=== PATIENT | female | born 1945 | race Caucasian/White ===

== ENCOUNTER 2022-07-01 01:52 | Outpatient (CLI) | payer MEDICARE, SELFPAY ==
[2022-07-01 12:27] LABS: HGB 13.3 g/dL (11.2-15.7); MCH 28.7 pg (27.0-33.0); MCHC 31.7 % (32.0-36.0); MCV 91 fL (80-95); MPV 10.8 fL (8.0-11.0); Platelet Count 296 10^3/uL (130-400); RBC 4.63 10^6/uL (3.93-5.22); RDW 13.9 % (11.7-14.6); RDW-SD 46.5 fL; WBC 6.78 10^3/uL (4.4-10.8)
[2022-07-01 12:58] LABS: ALT 16 U/L (14-59); AST 17 U/L (15-37); Alkaline Phosphatase 95 U/L (46-116); Anion Gap 7.1 mmol/L (3-11); BUN 17 mg/dL (7-18); Bilirubin, Total 0.3 mg/dL (0.2-1.0); CO2 26.9 mmol/L (21.0-32.0); CREATININE 0.8 mg/dL (0.55-1.02); Calcium 9.7 mg/dL (8.5-10.1); Chloride 107 mmol/L (98-107); Estimated GFR 76.31 (mL/min/1.73m2); Glucose 109 mg/dL (74-106); Potassium 3.9 mmol/L (3.5-5.1); Sodium 141 mmol/L (136-145); Total Protein 7.9 g/dL (6.4-8.2)
== END 2022-07-01 01:53 | disposition home or self-care (01) ==
LOC: LBO 01:52
PROVIDERS: Visit Provider Obstetrics & Gynecology Gynecology
DX: Z01.818 Encounter for other preprocedural examination (principal)
CPT/HCPCS: 36415; 80053; 85027; 86850; 86900; 86901

== ENCOUNTER 2022-07-03 06:12 | Day surgery (SDC) | payer MEDICARE, SELFPAY ==
[2022-07-03] VITALS (11 sets, daily range): BP systolic 91–158; BP diastolic 58–85; PULSE 61–81; RESP 12–22; TEMP 36.1–36.7; O2SAT 96–100; BMI 28.5
--- NOTE | 2022-07-03 07:54 | W.ANESPRE ---
General Info Date of Service Date Performed: 07/03/22 Height: 5 ft 4 in Weight: 75.6 kg Body Mass Index (BMI): 28.5 Surgical Procedure: Operation Date: 07/03/22 07:40 Proposed Procedure Side Surgeon p Salping-Oophorectomy Laparoscopic Bilateral Denae Thao MD Meds Allergies and Home Medications Allergies Allergy/AdvReac Type Severity Reaction Status Date / Time latex Allergy Mild Verified 07/03/22 06:56 fentanyl Allergy Verified 07/03/22 06:56 Home Medication Medication Instructions Recorded ascorbate calcium (vitamin C) 500 500 mg PO DAILY 05/23/22 mg tablet brimonidine 0.2 % eye drops 1 drp ophthalmic (eye) BID 05/23/22 calcium carbonate 500 mg-vitamin 2 tab PO DAILY 05/23/22 D3 3.125 mcg (125 unit) tablet cetirizine 10 mg tablet (Allergy 10 mg PO DAILY PRN 05/23/22 Relief (cetirizine)) cholecalciferol (vitamin D3) 50 50 mcg PO DAILY 05/23/22 mcg (2,000 unit) capsule cyanocobalamin (vitamin B-12) 1,000 mcg PO DAILY 05/23/22 1,000 mcg capsule epinephrine 0.3 mg/0.3 mL 0.3 mg IM ONCE 05/23/22 injection, auto-injector magnesium oxide 400 mg PO DAILY 05/23/22 melatonin 10 mg capsule 10 mg PO HS 05/23/22 netarsudil 0.02 %-latanoprost 1 drp ophthalmic (eye) DAILY 05/23/22 0.005 % eye drops omega-3 fatty acids-fish oil 360 1 cap PO DAILY 05/23/22 mg-1,200 mg capsule (Fish Oil) ropinirole 1 mg tablet 1 mg PO QHS 05/23/22 acetaminophen 500 mg tablet 500 mg PO DAILY 07/02/22 (Acetaminophen Extra Strength) diphenhydramine HCl 25 mg tablet 25 mg PO HS PRN 07/02/22 Current Visit Medications: Current Medications Generic Name Dose Route Start Last Admin Trade Name Freq PRN Reason Stop Dose Admin Ringer's Solution 1,000 mls @ 125 mls/hr 07/03/22 06:00 IV 07/14/22 23:59 INFUSION TONIA IV Miscellaneous Supplies 1 each 07/03/22 06:00 Iv Access IV 07/14/22 23:59 DIRECTED TONIA Sodium Chloride 0 ml 07/03/22 06:00 Normal Saline Flush 10 Ml Syr IV 07/14/22 23:59 PRN PRN Sodium Chloride 0 ml 07/03/22 06:00 Normal Saline 10 Ml Vial IJ 07/14/22 23:59 DIRECTED PRN Sterile Water 0 ml 07/03/22 06:00 Water,Injection,Sterile 10 Ml Vial IJ 07/14/22 23:59 DIRECTED PRN PFS Active Problems Active Problems: Problem Status Onset Code Cyst of ovary, left N83.202 Mastocytosis D47.09 Medical History Medical History Breast cancer, right breast 2012. Lumpectomy and XRT. Nl mammos since. Glaucoma L eye. followed by [place] Skin cancer 2021. SCC. Medical History Comments:: 09/04/2020: [facility] [place] note, Dr. Airam Herrera, Dermatology noted indolent systemic mastocytosis Surgical History Surgical History Fracture of left femur 02/2022. [facility] Fracture of right femur 2017. Surgical repair. Hx of tonsillectomy Tobacco Smoking/Tobacco Use Status: Former Tobacco Use Alcohol Alcohol Intake: never Substance Use Substance use: Never Vital Signs and Lab Results Vital Signs Most Recent Vital Signs in EMR: Most Recent Vital Signs Temp Pulse Resp BP Pulse Ox 36.1 C L 81 16 131/82 97 07/03/22 06:37 07/03/22 06:37 07/03/22 06:37 07/03/22 06:37 07/03/22 06:37 Lab Results Blood Type / Crossmatch: Patient ABO/Rh AB Positive 07/01/22 Antibody Screen NEGATIVE 07/01/22 Complete Blood Count: White Blood Count 6.78 10^3/uL (4.4-10.8) 07/01/22 12: Red Blood Count 4.63 10^6/uL (3.93-5.22) 07/01/22 12:23 Hemoglobin 13.3 g/dL (11.2-15.7) 07/01/22 12:23 Hematocrit 42.0 % (36.0-46.0) 07/01/22 12:23 Platelet Count 296 10^3/uL (130-400) 07/01/22 12:23 Complete Metabolic Panel: Sodium 141 mmol/L (136-145) 07/01/22 12:23 Potassium 3.9 mmol/L (3.5-5.1) 07/01/22 12:23 Chloride 107 mmol/L (98-107) 07/01/22 12:23 Carbon Dioxide 26.9 mmol/L (21.0-32.0) 07/01/22 12:23 BUN 17 mg/dL (7-18) 07/01/22 12:23 Creatinine 0.8 mg/dL (0.55-1.02) 07/01/22 12:23 Est GFR (CKD-EPI 2020) 76.31 (mL/min/1.73m2) 07/01/22 12:23 Calcium 9.7 mg/dL (8.5-10.1) 07/01/22 12:23 Albumin 4.0 g/dL (3.4-5.0) 07/01/22 12:23 Glucose 109 mg/dL (74-106) H 07/01/22 12:23 Liver Function Panel: Alanine Aminotransferase (ALT/SGPT) 16 U/L (14-59) 07/01/22 12:23 Aspartate Amino Transf (AST/SGOT) 17 U/L (15-37) 07/01/22 12:23 Coagulation Panel: No Data to Display Cardiac Panel: No Data to Display Arterial Blood Gas: No Data to Display Venous Blood Gas: No Data to Display Pancreas Panel: No Data to Display Thyroid Panel: No Data to Display Infectious Disease: No Data to Display Blood Cultures: No Data to Display Toxicology Panel: No Data to Display Imaging and Studies Imaging and Studies Study information below may be from another EMR and interpreted by another provider. Please see original notes in EMR for more complete details. EKG Summary: 05/27/2022: NSR Anesthesia Assessment and Plan Anesthesia History Personal History: Other Family History: No Family History of Anesthesia Complications Exercise Tolerance Exercise Tolerance: Metabolic Equivalents>4 Pertinent Negatives Pertinent Negatives: No Symptoms of GERD, No Major Cardiovascular Symptoms or Complaints and No Major Pulmonary Symptoms or Complaints Cardiac & Pulmonary Exam Cardiac Exam: Normal S1/S2 Heart Sounds Pulmonary Exam: Clear Bilateral Breath Sounds Implantable Cardiac Device Does patient have a Pacemaker or an ICD?: No Airway Exam Known Difficult Airway: No Mallampati Class: 2 Mouth Opening: Normal (> 3cm) Thyromental Distance: Greater than 3 cm Neck Range of Motion: Full ROM Neck Circumference: Normal Teeth Condition: Normal Dentition ASA Classification ASA Score: ASA 3 Emergency Case?: No NPO Status NPO Status: NPO Clears >2 hours, Solids >8 hours Anesthesia Plan Resuscitation Status: Full Code Anesthesia Technique: General Anesthesia Airway Planned: Endotracheal Tube Monitors Used: Standard Monitors and SedLine Preoperative Comments:: Lengthy discussion of mastocytosis, [facility] records reviewed. Plan for premedication, intraoperative to minimize risk factors to include heat as major trigger, and all team members have been updated on plan. Additional anesthesia provider available.
[2022-07-03] MEDS: Normal Saline Flush 10 ML SYR IV (08:09)
[2022-07-03] MEDS: Lactated Ringers 1,000 ML 125 ML IV (08:11)
[2022-07-03] MEDS: Bupivacaine 0.25% Pres-Free 30 ML VIAL (09:12)
--- NOTE | 2022-07-03 09:30 | OVAR_PTH ---
PATIENT: Isabel Willett LOC: [facility] U#:[id number] AGE/SX: 77/F ROOM: RE07/03/[address]: Denae Thao : 1945 BED: DIS: 07/03/2022 SPEC #: [id number] RECD: 07/03/22 12:40 STATUS: JAZMYNE REQ #: [id number] NATASHA: 07/03/22 09:[address]: Denae Thao DEPT: Surgical Specimen RECD BY: Yara Beck ENTERED: 07/03/22 12:45 SP TYPE: CRISTIANO FALCON DR: Unknown,Unknown Tissues: 1 - OVARY NOT TUMOR W OR W/O TUBES 2 - OVARY NOT TUMOR W OR W/O TUBES Procedures: GROSS AND MICRO LEVEL 4 Comments: [id number]
--- NOTE | 2022-07-03 09:30 | PAPNONF_PTH ---
PATIENT: Isabel Willett LOC: [facility] U#:[id number] AGE/SX: 77/F ROOM: RE07/03/[address]: Denae Thao : 1945 BED: DIS: 07/03/2022 SPEC #: [id number] RECD: 07/03/22 13:19 STATUS: JAZMYNE REQ #: [id number] NATASHA: 07/03/22 09:[address]: Denae Thao DEPT: [facility] Cytology RECD BY: Yara Beck ENTERED: 07/03/22 13:19 SP TYPE: SPARKLE FALCON DR: Unknown,Unknown Tissues: 1 - BODY FLUID CYTO(NOT S/U/N/EM)[facility] Procedures: BODY FLUID CYTO(NOT SPU/UR/NIP/ENDOM)[facility] Comments: [id number] (TV = 100 ml, SENT FRESH) (REFRIGERATED)
--- NOTE | 2022-07-03 10:03 | PDOC.DSDIS_ITS ---
Date of service: 07/03/22 Time of Service: 10:03 Discharge Plan Disposition Patient Disposition: Home Condition: Fair Discharge Details Reason For Visit: Laparoscopic bilateral salpingo-oophorectomy Attending Provider: Denae Thao Primary Care Provider: Unknown,Unknown Home Meds and New Rx's Prescriptions: No Action calcium carbonate-vitamin D3 500 mg-3.125 mcg (125 unit) tablet 2 tab PO DAILY Rx Instructions: 750 with Vitamin D3 500 magnesium oxide 400 mg magnesium capsule 400 mg PO DAILY Rx Instructions: omit Friday and Friday ascorbate calcium (vitamin C) 500 mg tablet 500 mg PO DAILY cholecalciferol (vitamin D3) 50 mcg (2,000 unit) capsule 50 mcg PO DAILY cyanocobalamin (vitamin B-12) 1,000 mcg capsule 1,000 mcg PO DAILY omega-3 fatty acids-fish oil [Fish Oil] 360-1,200 mg capsule 1 cap PO DAILY netarsudil-latanoprost 0.02-0.005 % drops 1 drp ophthalmic (eye) DAILY Rx Instructions: left eye brimonidine 0.2 % drops 1 drp ophthalmic (eye) BID Rx Instructions: administer approximately 8 hours apart ropinirole 1 mg tablet 1 mg PO QHS Rx Instructions: administer 1-3 hours before bedtime melatonin 10 mg capsule 10 mg PO HS epinephrine 0.3 mg/0.3 mL auto-injector 0.3 mg IM ONCE Rx Instructions: as a single dose; may repeat once cetirizine [Allergy Relief (cetirizine)] 10 mg tablet 10 mg PO DAILY PRN acetaminophen [Acetaminophen Extra Strength] 500 mg Tablet 500 mg PO DAILY diphenhydramine HCl 25 mg Tablet 25 mg PO HS PRN Discharge Instructions Additional Instructions: Avoid Ibuprofen for pain, I will write a prescription for Dilaudid if your pain is not controlled with Tylenol. Call Dr. Thao at [phone] with any concerns or questions. Keep your postop appointment with Dr. Thao. Stand Alone Forms: Anesthesia Discharge Inst., D[facility] Post Orthotic Technician SurgeryW/Kari Beebe ([facility]U) Referrals: Denae Thao MD [ [facility] STAFF PHYSICIAN] - 07/18/22 1:00 pm Activity:: Activity as Tolerated Shower/Bathe:: 24 hours Diet:: As Tolerated Discharge Orders Discharge Orders: Discharge Order (Routine); Ordered 07/03/22 Ordered By: Denae Thao
[2022-07-03] MEDS: HYDROmorphone 2 MG/ML SYR IVP (11:10)
--- NOTE | 2022-07-03 12:26 | ROE_ITS ---
Date of service: 07/03/22 Time of Service: 12:27 Operative Note Operative Note DATE OF PROCEDURE: 07/03/22 PRE-OP DIAGNOSIS: Left ovarian cyst POST-OP DIAGNOSIS: same PROCEDURE: Laparoscopic bilateral salpingo-oophorectomy including the left ovarian cyst SURGEON: Denae Thao ASSISTING SURGEON: Renate Gray ANESTHESIA TYPE: General LMA/ETT Refer to Anesthesia Record ESTIMATED BLOOD LOSS: 0 PATHOLOGY: other (Left ovarian cyst with left ovary and left fallopian tube along with right fallopian tube and right ovary) COMPLICATIONS: None Patient was transported to: PACU Patient's condition: stable Implants: None Indications: 77-year-old G0 female with a enlarged left ovarian cyst noted as an incidental finding at the time of a CAT scan in February 2022. Patient was experiencing some symptoms of urinary frequency and bladder pressure and decision was made to remove the cyst laparoscopically Findings: Smooth-walled left-sided ovarian cyst occupying the posterior cul-de-sac but no visible ovarian tissue noted. The left fallopian tube in mesosalpinx was draped over the left ovarian cyst. It was mobile with smooth walled with 240cc clear fluid aspirated at the time of surgery. Normal right adnexa. Uterus small with small anterior pedunculated fibroid and L broad ligament fibroid. Procedure Description: Patient was taken to the operating room where she was placed in the dorsal lithotomy position in a neurologically neutral position prior to the administration of general endotracheal anesthesia. SCDs were in place. She was prepped and draped in the usual sterile fashion. A surgical timeout was performed.? A ring forcep with a moistened 4 x 4 was placed into the vagina and left during the case. The umbilical fold was infiltrated with quarter percent Marcaine in a 12 mm transverse skin incision was made in the umbilicus.? Through this incision a Verres needle was placed into the abdomen and intra-abdominal placement confirmed by drop in the intra-abdominal pressure.?Once a pneumoperitoneum was established a 12 mm Visiport trocar was introduced into the abdomen under direct visualization.? The patient was then placed in Trendelenburg and approximately 6 cm diagonal to the right and left of the umbilical incision the skin was transilluminated the subcutaneous tissue infiltrated with quarter percent Marcaine and then incised with a scalpel.? Und er direct visualization two 5 mm ports were placed in the right and left lower quadrants respectively.? The abdomen was inspected with the above-noted findings. A laparoscopic needle attatched to a 60cc syringe was inserted into the ovarian cyst and clear fluid aspirated until the cyst was decompressed. A LigaSure electrocautery device was used to clamp cauterize and transect the left infundibulopelvic ligament and the left fallopian tube at its connection to the uterine cornua.? The ovarian cyst wall was placed in a collection bag and delivered through the umbilical skin incision.? The abdomen was reinspected and the left adnexa was noted to be hemostatic. Attenion was directed to the right adnexa where the right ovary was tented up and the infindibular ligament and and the mesosalpinx were clamped cauterized and transected in a series of contiguous bites. The right adnexa was delivered through the 12mm umbilical port. Both adnexal pedicles were inspected and noted to be hemostatic. Patient was repositioned in the dorsal supine position and both 5 mm ports were removed under direct visualization.? The pneumoperitoneum was deflated and the umbilical port site was removed.? The rectus fascia below the 12 mm port site was reapproximated with interrupted suture of 0 Vicryl.? The skin was reapproximated on the umbilical port site and the two 5mm port sites with a running subcuticular closure of 4-0 Monocryl.? The edges of both 5 mm and 12 mm port sites were reapproximated with Steri-Strips and covered with dry sterile dressing..? Patient was placed in the dorsal supine position awakened extubated and transported recovery area in stable condition.? All sponge lap needle counts correct x2.
--- NOTE | 2022-07-03 12:28 | W.ANESPOSTOP ---
Postoperative Evaluation Date, Time and Location Date Performed: 07/03/22 Time Performed: 12:28 Patient Location: Day Surgery Unit Vital Signs Most Recent Imported Vital Signs: Most Recent Vital Signs Temp Pulse Resp BP Pulse Ox 36.7 C 67 16 144/83 H 97 07/03/22 11:34 07/03/22 11:34 07/03/22 11:34 07/03/22 11:34 07/03/22 11:34 Pain Score Most Recent Pain Score: Most Recent Pain Score Pain Level 3 07/03/22 11:34 Assessment Mental Status: Awake (Alert & Oriented to Patient Baseline) Airway and Respiratory Function: Patent airway with normal (patient baseline) respiratory exam Cardiovascular Function: Hemodynamically Stable Hydration Status: Adequately Hydrated Nausea & Vomiting: No Nausea or Vomiting Pain: Pain is tolerable per patient Peripheral Nerve Block: Patient did not receive a nerve block
== END 2022-07-03 12:56 | disposition home or self-care (01) ==
PROVIDERS: Visit Provider Obstetrics & Gynecology Gynecology
PROC: (CPT 58661; principal; 2022-07-03 07:30)
DX: N83.202 Unspecified ovarian cyst, left side (principal)
CPT/HCPCS: 58661; 88305; 88104; J0131; J1170; J1200; J1720; J2405; J2704